=== PATIENT | male | born 1990 | race Caucasian/White ===

== ENCOUNTER 2022-06-21 02:32 | Emergency (ER) | payer SELFPAY ==
[~2022-06-21] VITALS: Ht 170.2 cm; Wt 66.2 kg
[2022-06-21 02:40] VITALS: BP_SYST 143
--- NOTE | 2022-06-21 02:47 | NUR ---
Patient ambulated with a steady gait to ER bed 6. and son at bedside.
[2022-06-21] MEDS ORDERED: DIAZEPAM 5 MG TABLET (VALIUM) PO ONE (04:30)
[2022-06-21] MEDS ORDERED: KETOROLAC TROMETHAMINE 30 MG VIAL IM ONE (04:45)
[2022-06-21] MEDS ORDERED: AUG875 PO (04:46)
[2022-06-21] MEDS ORDERED: PSEU120T57 PO (04:46)
--- NOTE | 2022-06-21 05:13 | NUR ---
Pt C/O uncontrollable migranes Pt evaaluated by MD Patient given written and verbal discharge instructions and verbalizes understanding. ER MD discussed with patient the results and treatment provided. Patient in stable condition. ID arm band removed. IV catheter removed intact and dressing applied, no active bleeding. Rx of Augmentin, sudafed given. Patient educated on pain management and to follow up with PMD. Pain Scale . Opportunity for questions provided and answered. Medication side effect fact sheet provided.
[2022-06-21 05:25] VITALS: BP_SYST 130
== END 2022-06-21 05:12 | disposition home or self-care (01) ==
LOC: SED 02:32
DX: R51.9 Headache, unspecified (principal); Z79.899 Other long term (current) drug therapy
CPT/HCPCS: 99285; 70450; 76376; 96372; J1885